=== PATIENT | female | born 1970 | race Hispanic/Latino ===

== ENCOUNTER 2018-01-29 12:46 | Emergency (ER) | payer OTHER ==
[2018-01-29] MEDS ORDERED: NA CHLORIDE 0.9% 1,000 ML ONE (13:45)
[2018-01-29 14:14] LABS: Absolute Lymphocytes (CBC) 2.4 K/uL (0.7-4.9); Absolute Monocytes 0.5 K/uL (0.1-1.3); Absolute Neutrophil 4.3 K/uL (1.8-8.0); Basophils % 0.9 % (0-1.3); Eosinophils % 4.7 % (0-4.4); Hematocrit 41.3 % (36.0-45.0); MCH 28.7 pg (27.0-35.0); MCV 83.2 fL (80-100); MPV 9.6 fL (7.6-11.3); Monocytes % 6.6 % (3.3-12.3); RBC Red Blood Cell Count 4.96 M/uL (3.86-4.86)
[2018-01-29 14:32] LABS: Urine Blood TRACE (NEG); Urine Glucose 2+ (NEG); Urine Protein NEGATIVE (NEG)
[2018-01-29 14:45] LABS: Urine Bacteria NONE SEEN /HPF (<20); Urine Culture Reflex Order NOT NEEDED; Urine RBC <5 /HPF (NONE SEEN)
[2018-01-29 14:50] LABS: ALT/SGPT 22 U/L (12-78); AST/SGOT 25 U/L (15-37); Albumin 3.7 g/dL (3.4-5.0); Alkaline Phosphatase 129 U/L (45-117); Amylase Level 21 U/L (25-115); BUN Blood Urea Nitrogen 9 mg/dL (7-18); Bicarbonate 28 mmol/L (21-32); Bilirubin Direct < 0.1 mg/dL (0-0.2); Bilirubin Total 0.4 mg/dL (0.2-1.0); Glucose Level 233 mg/dL (74-106); Lipase 78 U/L (73-393); Potassium 4.6 mmol/L (3.5-5.1); Protein, Total 8.4 g/dL (6.4-8.2); Sodium Level 134 mmol/L (136-145)
--- NOTE | 2018-01-29 16:09 | RAD REPORT ---
EXAM DESCRIPTION: CT - Abdomen Pelvis W Contrast - 01/29/2018 3:54 pm CLINICAL HISTORY: Abdominal pain, constipation, prior cholecystectomy COMPARISON: CT study August 13 TECHNIQUE: Biphasic, helical CT imaging of the abdomen and pelvis was performed following 100 ml non -ionic IV contrast. Oral contrast was given. All CT scans are performed using dose optimization technique as appropriate and may include automated exposure control or mA/KV adjustment according to patient size. FINDINGS: No suspicious findings in the lung bases. The liver, spleen, and pancreas show no suspicious findings. Gallbladder is absent. No biliary tree d ilatation. Symmetric renal function is seen with no hydronephrosis or suspicious renal mass. No pyelonephritis o r acute renal parenchymal process. No urinary bladder abnormality seen. Uterus and ovaries within nor mal limits. No gastric dilatation or gastric wall thickening. No small bowel abnormality. There is a large amount of stool distending the rectum. There is moderate stool volume in the left side of the colon. Oral C T contrast has reached the right side transverse colon. No free air, free fluid or inflammatory stranding. No hernia, mass or bulky lymphadenopathy. No suspicious bony findings. IMPRESSION: Large amount of stool is present distending the rectum. There is moderate stool volume t hroughout the left side of the colon. No mass, diverticulitis or acute colon process otherwise noted. The remainder the study, as detailed above, is without acute or suspicious finding.
[2018-01-29] MEDS ORDERED: MAGNESIUM CITRATE 300 ML BOT ONE (17:33)
[2018-01-29] MEDS ORDERED: MINERAL OIL ENEMA 135 ML BTL PR ONE (17:33)
--- NOTE | 2018-01-29 18:17 | EDPHYS ---
Physician Documentation [facility] Name: Misty Vidal Age: 47 yrs Sex: Female : 1970 Arrival Date: 01/29/2018 Time: 12:49 Bed 24 Private MD: None, None ED Physician Anjel Joiner HPI: 01/29 13:35 This 47 yrs old Female presents to ER via Ambulatory with complaints of cp Abdominal Pain. 13:35 The patient presents with abdominal pain that is diffuse, constipation. Onset: The cp symptoms/episode began/occurred 3 day(s) ago. Associated signs and symptoms: Pertinent positives: constipation, with last BM 3 days ago, Pertinent negatives: anorexia, blood in stools, chest pain, diarrhea, dysuria, fever, vomiting. Severity of pain: in the emergency department the pain is unchanged despite home interventions. 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 tw2 Historical: - Allergies: 12:51 No Known Allergies; sv - Home Meds: 12:56 metformin 1,000 mg Oral tab 1 tab [Active]; tw2 - PMHx: 12:51 Diabetes - NIDDM; Hypertension; sv - PSHx: 12:51 Cholecystectomy; sv - Immunization history:: Adult Immunizations up to date. - Social history:: Smoking status: Patient/guardian denies using tobacco. - Ebola Screening: : No symptoms or risks identified at this time. ROS: 13:40 Constitutional: Negative for body aches, chills, fever, poor PO intake. cp 13:40 Eyes: Negative for injury, pain, redness, and discharge. cp 13:40 ENT: Negative for drainage from ear(s), ear pain, sore throat, difficulty swallowing, difficulty handling secretions. 13:40 Cardiovascular: Negative for chest pain, edema, palpitations. 13:40 Respiratory: Negative for cough, shortness of breath, wheezing. 13:40 Abdomen/GI: Positive for nausea and vomiting, constipation, Negative for vomiting, diarrhea, anorexia, black/tarry stool, rectal bleeding. 13:40 Back: Negative for decreased range of motion, pain at rest, pain with movement. 13:40 : Negative for urinary symptoms. 13:40 Skin: Negative for cellulitis, rash. 13:40 Neuro: Negative for altered mental status, headache, syncope, near syncope, weakness. 13:40 All other systems are negative. Exam: 13:48 Constitutional: The patient appears in no acute distress, alert, awake, cp non-diaphoretic, non-toxic, well developed, well nourished, uncomfortable. 13:48 Head/Face: Normocephalic, atraumatic. cp 13:48 Eyes: Periorbital structures: appear normal, Conjunctiva: normal, no exudate, no injection, Sclera: no appreciated abnormality, Lids and lashes: appear normal, bilaterally. 13:48 ENT: External ear(s): are unremarkable, Nose: is normal, Mouth: Lips: moist, Oral mucosa: pink and intact, moist, Posterior pharynx: is normal, airway is patent, no erythema, no exudate. 13:48 Chest/axilla: Inspection: normal, Palpation: is normal, no crepitus, no tenderness. 13:48 Cardiovascular: Rate: normal, Rhythm: regular. 13:48 Respiratory: the patient does not display signs of respiratory distress, Respirations: normal, no use of accessory muscles, no retractions, no splinting, no tachypnea, labored breathing, is not present, Breath sounds: are clear throughout, no decreased breath sounds, no stridor, no wheezing. 13:48 Abdomen/GI: Inspection: obese Bowel sounds: active, all quadrants, Palpation: soft, in all quadrants, mild abdominal tenderness, in the right lower quadrant and left lower quadrant, rebound tenderness, is not appreciated, voluntary guarding, is not appreciated, involuntary guarding, is not appreciated. 13:48 Back: pain, is absent, ROM is normal. 13:48 Skin: cellulitis, is not appreciated, no rash present. 13:48 Neuro: Orientation: to person, place \T\ time. Mentation: lucid, able to follow commands, Cerebellar function: is grossly normal, Motor: moves all fours, strength is normal, Sensation: no obvious gross deficits. Vital Signs: 12:52 BP 127 / 80; Pulse 80; Resp 18; Temp 97; Pulse Ox 98% ; Weight 99.34 kg; sv 14:15 BP 126 / 66; Pulse 72; Resp 18; Pulse Ox 97% ; tl3 15:00 BP 122 / 74; Pulse 74; Resp 17; Pulse Ox 97% on R/A; tw2 16:00 BP 108 / 70; Pulse 70; Resp 17; Pulse Ox 97% on R/A; tw2 17:00 BP 119 / 60; Pulse 72; Resp 18; Pulse Ox 99% on R/A; tw2 18:35 BP 122 / 74; Pulse 70; Resp 17; Pulse Ox 97% on R/A; tw2 MDM: 12:58 Patient medically screened. cp 14:00 Differential diagnosis: bowel obstruction, constipation. cp 18:15 Data reviewed: vital signs, nurses notes, lab test result(s), radiologic studies. cp 18:15 Counseling: I had a detailed discussion with the patient and/or guardian regarding: the cp historical points, exam findings, and any diagnostic results supporting the discharge/admit diagnosis, lab results, radiology results, to return to the emergency department if symptoms worsen or persist or if there are any questions or concerns that arise at home. Response to treatment: the patient's symptoms have mildly improved after treatment, and as a result, I will discharge patient. 01/29 13:32 Order name: Amylase, Serum; Complete Time: 15:46 cp 01/29 13:32 Order name: Basic Metabolic Panel; Complete Time: 15:46 cp 01/29 13:32 Order name: CBC with Diff; Complete Time: 14:39 cp 01/29 13:32 Order name: Creatinine for Radiology; Complete Time: 15:46 cp 01/29 13:32 Order name: Hepatic Function; Complete Time: 15:46 cp 01/29 13:32 Order name: Lipase; Complete Time: 15:46 cp 01/29 13:32 Order name: Urine Test (obtain specimen); Complete Time: 14:40 cp 01/29 13:32 Order name: Urine Microscopic Only; Complete Time: 15:46 cp 01/29 13:32 Order name: IV Saline Lock; Complete Time: 13:55 cp 01/29 13:32 Order name: CT Abd/Pelvis - W/Contrast; Complete Time: 16:14 cp 01/29 14:26 Order name: Urine Dipstick--Ancillary (enter results); Complete Time: 14:39 eb 01/29 13:32 Order name: Labs collected and sent; Complete Time: 13:55 cp 01/29 13:32 Order name: Urine Dipstick-Ancillary (obtain specimen); Complete Time: 14:40 cp Administered Medications: 13:50 Drug: NS 0.9% 1000 ml Route: IV; Rate: 1 bolus; Site: left antecubital; tw2 17:31 Follow up: Response: No adverse reaction; IV Status: Completed infusion; IV Intake: tw2 1000ml 17:32 Drug: Magnesium Citrate Liquid 300 ml Route: PO; tl3 17:53 Follow up: Response: No adverse reaction tw2 17:32 Drug: Fleet Enema 133 ml Route: MN; tl3 17:53 Follow up: Response: No adverse reaction tw2 Disposition: 01/29/18 18:16 Discharged to Home. Impression: Constipation, unspecified. - Condition is Stable. - Discharge Instructions: Constipation, Adult, High-Fiber Diet. - Prescriptions for Golytely - take 1 bottle by ORAL route as directed; 1 bottle. - Medication Reconciliation Form, Thank You Letter, Antibiotic Education, Prescription Opioid Use form. - Follow up: Private Physician; When: 1 - 2 days; Reason: Recheck today's complaints. - Problem is new. - Symptoms have improved. Addendum: 02/02/2018 18:24 Co-signature as Attending Physician, Anjel Joiner MD. m a2 Signatures: Dispatcher [employer] Jessie Paniagua RN RN sv Luis Faustin PA PA Veronica Mondragon RN RN tw2 Anjel Joiner MD MD ky2 Cece Gutierrez RN RN tl3 Corrections: (The following items were deleted from the chart) 01/29 18:36 18:16 01/29/2018 18:16 Discharged to Home. Impression: Constipation, unspecified. tw2 Condition is Stable. Forms are Medication Reconciliation Form, Thank You Letter, Antibiotic Education, Prescription Opioid Use. Follow up: Private Physician; When: 1 - 2 days; Reason: Recheck today's complaints. Problem is new. Symptoms have improved. cp
--- NOTE | 2018-01-29 18:17 | ER ---
Nurse's Notes [facility] Name: Misty Vidal Age: 47 yrs Sex: Female : 1970 Arrival Date: 01/29/2018 Time: 12:49 Bed 24 Private MD: None, None Diagnosis: Constipation, unspecified Presentation: 01/29 12:50 Presenting complaint: Patient states: abd bloating, constipated a few days. Denies n/v. sv Transition of care: patient was not received from another setting of care. Onset of symptoms was January 26, 2018. Care prior to arrival: None. 12:50 Method Of Arrival: Ambulatory sv 12:50 Acuity: ABIEL 3 sv 12:55 Risk Assessment: Do you want to hurt yourself or someone else? Patient reports no tw2 desire to harm self or others. Initial Sepsis Screen: Does the patient meet any 2 criteria? No. Patient's initial sepsis screen is negative. Does the patient have a suspected source of infection? No. Patient's initial sepsis screen is negative. 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 tw2 Historical: - Allergies: 12:51 No Known Allergies; sv - Home Meds: 12:56 metformin 1,000 mg Oral tab 1 tab [Active]; tw2 - PMHx: 12:51 Diabetes - NIDDM; Hypertension; sv - PSHx: 12:51 Cholecystectomy; sv - Immunization history:: Adult Immunizations up to date. - Social history:: Smoking status: Patient/guardian denies using tobacco. - Ebola Screening: : No symptoms or risks identified at this time. Screenin:55 Abuse screen: Denies threats or abuse. Nutritional screening: No deficits noted. tw2 Tuberculosis screening: No symptoms or risk factors identified. Fall Risk None identified. Assessment: 13:02 General: Appears in no apparent distress. Behavior is calm, cooperative, appropriate tw2 for age. Pain: Complains of pain in abdomen. Neuro: Level of Consciousness is awake, alert, obeys commands, Oriented to person, place, time, situation. Cardiovascular: Denies chest pain, shortness of breath, Heart tones S1 S2 Capillary refill < 3 seconds Patient's skin is warm and dry. Respiratory: Airway is patent Respiratory effort is even, unlabored, Respiratory pattern is regular, symmetrical, Breath sounds are clear bilaterally. GI: Abdomen is round non-distended, Bowel sounds present X 4 quads. Abd is soft X 4 quads. GI: Parent/caregiver reports the patient having constipation, since 3 days now. : No signs and/or symptoms were reported regarding the genitourinary system. EENT: No signs and/or symptoms were reported regarding the EENT system. Derm: No signs and/or symptoms reported regarding the dermatologic system. Musculoskeletal: No signs and/or symptoms reported regarding the musculoskeletal system. Range of motion: intact in all extremities. 14:15 Reassessment: Patient appears in no apparent distress at this time. Patient and/or tl3 family updated on plan of care and expected duration. Pain level reassessed. Patient is alert, oriented x 3, equal unlabored respirations, skin warm/dry/pink. pt provided urine. 15:00 Reassessment: Patient appears in no apparent distress at this time. Patient and/or tw2 family updated on plan of care and expected duration. Pain level reassessed. Patient is alert, oriented x 3, equal unlabored respirations, skin warm/dry/pink. 15:59 Reassessment: Patient appears in no apparent distress at this time. Patient and/or tw2 family updated on plan of care and expected duration. Pain level reassessed. Patient is alert, oriented x 3, equal unlabored respirations, skin warm/dry/pink. 17:00 Reassessment: Patient appears in no apparent distress at this time. Patient and/or tw2 family updated on plan of care and expected duration. Pain level reassessed. Patient is alert, oriented x 3, equal unlabored respirations, skin warm/dry/pink. 17:33 Reassessment: Patient and/or family updated on plan of care and expected duration. Pain tl3 level reassessed. Patient is alert, oriented x 3, equal unlabored respirations, skin warm/dry/pink. provider attempted bowel disimpaction, bowel was soft and only small amount removed, fleet emema ordered and administered. 18:35 Reassessment: Patient appears in no apparent distress at this time. Patient and/or tw2 family updated on plan of care and expected duration. Pain level reassessed. Patient is alert, oriented x 3, equal unlabored respirations, skin warm/dry/pink. Patient states feeling better. Vital Signs: 12:52 BP 127 / 80; Pulse 80; Resp 18; Temp 97; Pulse Ox 98% ; Weight 99.34 kg; sv 14:15 BP 126 / 66; Pulse 72; Resp 18; Pulse Ox 97% ; tl3 15:00 BP 122 / 74; Pulse 74; Resp 17; Pulse Ox 97% on R/A; tw2 16:00 BP 108 / 70; Pulse 70; Resp 17; Pulse Ox 97% on R/A; tw2 17:00 BP 119 / 60; Pulse 72; Resp 18; Pulse Ox 99% on R/A; tw2 18:35 BP 122 / 74; Pulse 70; Resp 17; Pulse Ox 97% on R/A; tw2 ED Course: 12:49 Patient arrived in ED. sb2 12:49 None, None is Private Physician. sb2 12:51 Triage completed. sv 12:53 Arm band placed on right wrist. sv 12:55 Veronica Martinez, RN is Primary Nurse. tw2 12:55 Call light in reach. Adult w/ patient. Pulse ox on. NIBP on. tw2 12:58 Luis Faustin PA is PHCP. cp 12:58 Anjel Joiner MD is Attending Physician. cp 13:54 Inserted saline lock: 20 gauge in left antecubital area, using aseptic technique. cc1 13:54 Initial lab(s) drawn, by me, sent to lab. cc1 14:15 No provider procedures requiring assistance completed. tl3 15:[address] vm2 15:54 CT Abd/Pelvis - W/Contrast In Process Unspecified. EDMS 15:54 CT completed. Patient tolerated procedure well. Patient moved back from CT. nj 18:36 IV discontinued, intact, bleeding controlled, No redness/swelling at site. Pressure tw2 dressing applied. Administered Medications: 13:50 Drug: NS 0.9% 1000 ml Route: IV; Rate: 1 bolus; Site: left antecubital; tw2 17:31 Follow up: Response: No adverse reaction; IV Status: Completed infusion; IV Intake: tw2 1000ml 17:32 Drug: Magnesium Citrate Liquid 300 ml Route: PO; tl3 17:53 Follow up: Response: No adverse reaction tw2 17:32 Drug: Fleet Enema 133 ml Route: IN; tl3 17:53 Follow up: Response: No adverse reaction tw2 Intake: 17:31 IV: 1000ml; Total: 1000ml. tw2 Outcome: 18:16 Discharge ordered by . cp 18:35 Discharged to home ambulatory, with family. tw2 18:35 Condition: stable 18:35 Discharge instructions given to patient, family, Instructed on discharge instructions, follow up and referral plans. medication usage, Demonstrated understanding of instructions, follow-up care, medications, Prescriptions given X 1. 18:36 Patient left the ED. tw2 Signatures: Dispatcher [employer] Jessie Paniagua, RN RN Abdi Watters cc1 Luis Faustin PA PA cp Wise, Tara RN RN tw2 Suhail Rodriguez Victoria 2 Chapis Macedo 2 Cece Gutierrez RN RN tl3 Corrections: (The following items were deleted from the chart) 12:53 12:52 Pulse 80bpm; Resp 18bpm; Pulse Ox 98%; Temp 97F; 99.34 kg; sv sv
== END 2018-01-29 18:36 | disposition home or self-care (01) ==
LOC: ER 12:46
DX: K59.00 Constipation, unspecified (principal); I10 Essential (primary) hypertension; E11.9 Type 2 diabetes mellitus without complications
CPT/HCPCS: 36415; 74177; 80048; 80076; 81003; 81015; 82150; 83690; 85025; 96360; 96361; 99284; J7030; Q9967